=== PATIENT | female | born 1965 | race Caucasian/White ===

== ENCOUNTER 2020-10-06 14:50 | Outpatient (CLI) | payer MEDICARE, MEDICAID, SELFPAY ==
[2020-10-06 16:33] LABS: Potassium 3.8 mmol/L (3.4-5.0)
[2020-10-06 16:43] LABS: Anion Gap 9 mmol/L (8-16); Blood Urea Nitrogen 16 mg/dL (7-17); Calcium 9.6 mg/dL (8.4-10.2); Carbon Dioxide 28 mmol/L (22-30); Chloride 99 mmol/L (98-107); Estimated Glomerular Filt Rate > 60; Glucose 143 mg/dL (65-105); Sodium 136 mmol/L (137-145)
[2020-10-06 16:47] LABS: Hemoglobin A1C 10.4 % (<5.7)
[2020-10-06 16:51] LABS: Creatinine Urine 26.4 mg/dL
[2020-10-06 17:14] LABS: MALB Creatinine Ratio < 22.7 mg/g (0-30); Microalbumin Urine Random < 6.0 mg/L (0-16.7)
[2020-10-09 07:22] LABS: C-Peptide 0.48 ng/mL (0.80-3.85)
== END 2020-10-06 14:51 | disposition home or self-care (01) ==
LOC: ANHWCLAB 14:56
PROVIDERS: Visit Provider Internal Medicine Endocrinology, Diabetes & Metabolism
DX: E11.65 Type 2 diabetes mellitus with hyperglycemia (principal)
CPT/HCPCS: 36415; 80048; 82043; 83036; 84681

== ENCOUNTER 2021-06-06 08:40 | Outpatient (CLI) | payer MEDICARE, MEDICAID, SELFPAY ==
[2021-06-06 16:18] LABS: Basophils Percent Auto 0.7 % (0.2-1.2); Eosinophils Absolute Auto 0.1 K/mm3 (0-0.3); Eosinophils Percent Auto 1.5 % (0-4.4); Hematocrit 34.8 % (37.0-47.0); Hemoglobin 10.7 g/dL (12.0-15.0); Immature Granulocyte Absolute 0.03 K/mm3 (0.00-0.031); Immature Granulocyte Percent A 0.5 % (0-0.5); Immature Platelet Fraction Pct 16.5 % (0.9-11.2); Lymphocytes Absolute Auto 1.61 K/mm3 (0.9-3.2); Lymphocytes Percent Auto 26.7 % (18.3-44.2); Mean Corpuscular HGB Conc 30.7 g/dl (32-36); Mean Corpuscular Volume 94.3 fl (80-100); Mean Platelet Volume 13.5 fl (7.4-10.4); Monocytes Absolute Auto 0.4 K/mm3 (0.1-0.6); Monocytes Percent Auto 6.8 % (2.6-8.5); Neutrophils Absolute Auto 3.9 K/mm3 (1.3-6.7); Neutrophils Percent Auto 63.8 % (45.5-73.1); Platelet Count Result 141 k/mm3 (150-375); Red Blood Count 3.69 M/mm3 (4.2-5.4); Red Cell Distribution Width 14.2 % (11.5-14.5)
[2021-06-06 17:52] LABS: Alanine Aminotransferase 37 U/L (4-35); Albumin Level 4.7 g/dL (3.5-5.1); Alkaline Phosphatase 119 U/L (38-126); Anion Gap 8 mmol/L (8-16); Aspartate Amino Transferase 56 U/L (14-36); Bilirubin,Total 0.6 mg/dL (0.2-1.3); Blood Urea Nitrogen 27 mg/dL (7-17); Calcium 9.2 mg/dL (8.4-10.2); Carbon Dioxide 27 mmol/L (22-30); Chloride 103 mmol/L (98-107); Estimated Glomerular Filt Rate > 60; Glucose 189 mg/dL (65-110); Potassium 3.6 mmol/L (3.4-5.0); Sodium 138 mmol/L (137-145)
[2021-06-06 18:07] LABS: Vitamin D 25 Hydroxy 56.9 ng/mL
[2021-06-06 18:09] LABS: Free T4 Free Thyroxine 1.24 ng/mL (0.78-2.19)
[2021-06-06 18:21] LABS: Total Triiodothyronine (T3) 1.19 NG/ML (0.97-1.69)
[2021-06-06 19:03] LABS: Folic Acid > 20.0 ng/mL (2.76->20); Vitamin B12 > 1000.0 pg/mL (239-931)
== END 2021-06-06 08:41 | disposition home or self-care (01) ==
PROVIDERS: Visit Provider Nurse Practitioner Family
DX: L65.9 Nonscarring hair loss, unspecified (principal); R63.4 Abnormal weight loss; E11.9 Type 2 diabetes mellitus without complications; N18.30 Chronic kidney disease, stage 3 unspecified
CPT/HCPCS: 36415; 80053; 82306; 82607; 82746; 84439; 84443; 84480; 85025; 85055

== ENCOUNTER 2022-06-19 12:13 | Outpatient (CLI) | payer MEDICARE, MEDICAID, SELFPAY ==
[2022-06-19 14:42] LABS: MALB Creatinine Ratio 24.8 mg/g (0-30); Microalbumin Urine Random 6.2 mg/L (0-16.7)
[2022-06-20 18:42] LABS: Thyroid Stimulating Hormone 0.298 uIU/mL (0.465-4.680)
[2022-06-20 21:28] LABS: Anion Gap 15 mmol/L (8-16); Blood Urea Nitrogen 21 mg/dL (7-17); Calcium 9.7 mg/dL (8.4-10.2); Carbon Dioxide 21 mmol/L (22-30); Chloride 98 mmol/L (98-107); Estimated Glomerular Filt Rate 57; Glucose 403 mg/dL (65-110); HDL Direct 45 mg/dL; Sodium 134 mmol/L (137-145)
[2022-06-20 21:38] LABS: LDL Cholesterol Direct 53 mg/dL
== END 2022-06-19 12:14 | disposition home or self-care (01) ==
LOC: ANHWCLAB 12:15
PROVIDERS: Visit Provider Internal Medicine Endocrinology, Diabetes & Metabolism
DX: E11.65 Type 2 diabetes mellitus with hyperglycemia (principal); E11.40 Type 2 diabetes mellitus with diabetic neuropathy, unspecified
CPT/HCPCS: 36415; 80048; 82043; 83718; 83721; 84443

== ENCOUNTER 2023-05-02 09:49 | Outpatient (CLI) | payer MEDICARE, MEDICAID, SELFPAY ==
[2023-05-02 12:49] LABS: Anion Gap 4 mmol/L (8-16); Blood Urea Nitrogen 18 mg/dL (7-17); Calcium 9.3 mg/dL (8.4-10.2); Carbon Dioxide 31 mmol/L (22-30); Chloride 100 mmol/L (98-107); Estimated Glomerular Filt Rate 57; Glucose 128 mg/dL (65-110); HDL Direct 52 mg/dL; Potassium 3.6 mmol/L (3.4-5.0); Sodium 135 mmol/L (137-145)
[2023-05-02 12:58] LABS: LDL Cholesterol Direct 67 mg/dL
[2023-05-02 13:04] LABS: Free T4 Free Thyroxine 1.44 ng/mL (0.78-2.19)
[2023-05-02 13:16] LABS: Creatinine Urine 21.2 mg/dL
[2023-05-02 13:18] LABS: Thyroid Stimulating Hormone 0.387 uIU/mL (0.465-4.680)
[2023-05-02 13:20] LABS: MALB Creatinine Ratio 35.4 mg/g (0-30); Microalbumin Urine Random 7.5 mg/L (0-16.7)
[2023-05-05 22:08] LABS: Triiodothyronine T3 Free 3.2 pg/mL (2.3-4.2)
== END 2023-05-02 09:50 | disposition home or self-care (01) ==
LOC: ANHWCLAB 09:53
PROVIDERS: Visit Provider Internal Medicine Endocrinology, Diabetes & Metabolism
DX: E11.65 Type 2 diabetes mellitus with hyperglycemia (principal); Z79.4 Long term (current) use of insulin; E04.9 Nontoxic goiter, unspecified
CPT/HCPCS: 36415; 80048; 82043; 83718; 83721; 84439; 84443; 84481